=== PATIENT | male | born 1985 | race American Indian/Alaskan Native ===

== ENCOUNTER 2019-09-14 05:00 | Emergency (ER) | payer SELFPAY ==
[2019-09-14 05:16] VITALS: BP 147/92
--- NOTE | 2019-09-14 06:17 | XRay Report ---
EXAMINATION: Right knee radiograph, 4 views CLINICAL INFORMATION: Right knee pain. No history of trauma is given. COMPARISON: None. FINDINGS: There is no evidence of acute fracture or dislocation of the right knee. No focal soft tiss ue swelling is identified. No significant bony degenerative changes are noted. Signer Name: Sonal Smith MD Signed: 09/14/2019 6:12 AM Workstation Name: [email or web address]
--- NOTE | 2019-09-14 06:18 | XRay Report ---
EXAMINATION: Left knee radiograph, 3 views CLINICAL INFORMATION: Left knee pain. No history of trauma is given. COMPARISON: None FINDINGS: There is no evidence of acute fracture or dislocation of the left knee. No focal soft tissu e swelling is identified. No significant bony degenerative changes are noted. Signer Name: Sonal Smith MD Signed: 09/14/2019 6:13 AM Workstation Name: [id number]
--- NOTE | 2019-09-14 06:19 | XRay Report ---
EXAMINATION: Right wrist radiograph, 4 views CLINICAL INFORMATION: Right wrist pain. No history of trauma is given. COMPARISON: None. FINDINGS: There is no evidence of acute fracture or dislocation of the right wrist. No focal soft tis dunia swelling is identified. Signer Name: Sonal Smith MD Signed: 09/14/2019 6:14 AM Workstation Name: [id number]
--- NOTE | 2019-09-14 06:20 | XRay Report ---
EXAMINATION: Left wrist radiograph, 4 views CLINICAL INFORMATION: Left wrist pain. No history of trauma is given. COMPARISON: None. FINDINGS: There is no evidence of acute fracture or dislocation of the right wrist. No focal soft tis dunia swelling is identified. Signer Name: Sonal Smith MD Signed: 09/14/2019 6:15 AM Workstation Name: [id number]
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
== END 2019-09-14 07:22 | disposition home or self-care (01) ==
LOC: EDBD → ED 05:00
DX: S60.212A Contusion of left wrist, initial encounter (principal); S60.211A Contusion of right wrist, initial encounter; S80.02XA Contusion of left knee, initial encounter; S80.01XA Contusion of right knee, initial encounter; J45.909 Unspecified asthma, uncomplicated; Z90.49 Acquired absence of other specified parts of digestive tract; W17.89XA Other fall from one level to another, initial encounter; Y93.89 Activity, other specified; Y92.89 Other specified places as the place of occurrence of the external cause; Y99.8 Other external cause status